=== PATIENT | male | born 1975 | race Caucasian/White ===

== ENCOUNTER 2019-06-14 20:52 | Emergency (ER) | payer SELFPAY ==
[~2019-06-14] VITALS: Ht 180.3 cm; Wt 81.6 kg
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
[2019-06-14] MEDS ORDERED: IBUPROFEN600 MG ORAL (22:14)
[2019-06-14 22:15] VITALS: BP 144/81
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
== END 2019-06-14 23:45 ==
LOC: EDBD 20:52 → EMR 22:17
DX: S00.33XA Contusion of nose, initial encounter (principal); Y04.2XXA Assault by strike against or bumped into by another person, initial encounter; Y92.9 Unspecified place or not applicable; Z88.6 Allergy status to analgesic agent
CPT/HCPCS: 70486; 99284